=== PATIENT | female | born 1950 | race Caucasian/White ===

== ENCOUNTER 2021-10-14 17:37 | Emergency (ER) | payer MEDICARE, MEDICAID ==
[~2021-10-14] VITALS: Ht 167.6 cm; Wt 68.0 kg
[2021-10-14] MEDS ORDERED: LIDOCAINE HCL 1% 20ML VIAL (Pyxis) INJ INFIL ONE (18:15)
[2021-10-14] MEDS ORDERED: AMLODIPINE 5MG TABLET PO ONE (18:45)
[2021-10-14] MEDS ORDERED: HYDROCHLOROTHIAZIDE 25MG TABLET PO ONE (18:45)
[2021-10-15 04:15] VITALS: BP 191/95
== END 2021-10-15 13:25 ==
LOC: ER 17:37
DX: S01.111A Laceration without foreign body of right eyelid and periocular area, initial encounter (principal); S00.83XA Contusion of other part of head, initial encounter; I69.351 Hemiplegia and hemiparesis following cerebral infarction affecting right dominant side; I69.392 Facial weakness following cerebral infarction; I10 Essential (primary) hypertension; I48.91 Unspecified atrial fibrillation; Z79.01 Long term (current) use of anticoagulants; K02.9 Dental caries, unspecified; F03.90 Unspecified dementia, unspecified severity, without behavioral disturbance, psychotic disturbance, mood disturbance, and anxiety; W05.0XXA Fall from non-moving wheelchair, initial encounter; Y93.89 Activity, other specified; Y92.128 Other place in nursing home as the place of occurrence of the external cause
CPT/HCPCS: 70486; 99285

== ENCOUNTER 2021-12-07 16:18 | Inpatient (IN) | payer MEDICARE, MEDICAID ==
[~2021-12-07] VITALS: Ht 167.6 cm; Wt 52.2 kg
[2021-12-07] MEDS ORDERED: LABETALOL 5MG/ML SYR 20 MG/4 ML SYRINGE IV ONE (16:45)
[2021-12-07 16:57] LABS: BASOPHILS % 0.8 % (0.0-2.0); EOSINOPHILS % 1.3 % (0.0-5.0); HEMATOCRIT. 32.4 % (36.0-48.0); HEMOGLOBIN. 11.2 g/dL (12.0-16.0); MEAN CORPUSCULAR HEMOGLOBIN 30.6 pg (28.0-32.0); MEAN CORPUSCULAR VOLUME 88.5 fL (81.0-99.0); MONOCYTES % 10.3 % (2.0-8.0); NEUTROPHILS % 67.6 % (40.0-76.0); PLATELET 220 x1000/uL (130-400); RED BLOOD CELL COUNT 3.66 mill/uL (4.2-5.4); RED CELL DISTRIBUTION WIDTH 14.5 % (11.6-14.6)
[2021-12-07 17:06] LABS: PROTHROMBIN TIME 11.1 sec (9.6-11.0)
[2021-12-07 17:08] LABS: CHLORIDE 102 mEq/L (98-107)
[2021-12-07] MEDS ORDERED: LORAZEPAM 2MG/ML CPJ IM ONE (17:15)
[2021-12-07] MEDS ORDERED: DIPHENHYDRAMINE 50MG/ML VIAL IM ONE (17:15)
[2021-12-07 17:19] LABS: ETHANOL BLOOD < 10 mg/dL
[2021-12-07] MEDS: HALOPERIDOL LACTATE 5MG/ML VIAL IM ONE ×2 (17:21→17:53)
[2021-12-07 17:33] LABS: CLARITY URINE CLEAR (CLEAR); COLOR URINE YELLOW (YELLOW); KETONES URINE NEGATIVE (NEGATIVE); LEUKOCYTE ESTERASE URINE 1+ (NEGATIVE); NITRITE URINE NEGATIVE (NEGATIVE); OCCULT BLOOD URINE TRACE (NEGATIVE); PH URINE 6.5 (4.5-8.0); PROTEIN URINE 3+ (NEGATIVE); SPECIFIC GRAVITY URINE 1.036 (1.005-1.030); UROBILINOGEN URINE 0.2 E.U./dL (0.2-1.0)
[2021-12-07 17:55] LABS: *AMPHETAMINES SCREEN URINE NEGATIVE (NEGATIVE); *BARBITURATES SCREEN URINE NEGATIVE (NEGATIVE); *BENZODIAZEPINES SCREEN URINE NEGATIVE (NEGATIVE); *COCAINE SCREEN URINE NEGATIVE (NEGATIVE); CANNABINOID URINE SCREEN NEGATIVE (NEGATIVE); METHADONE URINE SCREEN NEGATIVE (NEGATIVE); OPIATES URINE SCREEN NEGATIVE (NEGATIVE); PHENCYCLIDINE URINE SCREEN NEGATIVE (NEGATIVE)
[2021-12-07] MEDS ORDERED: CEFTRIAXONE 1 G PREMIX 50 ML IV ONE (18:30)
[2021-12-07] MEDS ORDERED: SODIUM CHLORIDE 0.9% 1,000 ML IV ONE (18:30)
[2021-12-07] MEDS ORDERED: NITROPRUSSIDE 50 MG in SODIUM CHLORIDE 0.9% 248 ML IV PRN ×4 (19:15)
[2021-12-07 20:30] VITALS: BP 174/85
[2021-12-07 20:45] VITALS: BP 169/86
[2021-12-07 21:00] VITALS: BP_SYST 153; BP_SYST 166; BP_SYST 174; BP_DIAS 73; BP_DIAS 78; BP_DIAS 96
[2021-12-07 21:30] VITALS: BP 136/74
[2021-12-07 22:00] VITALS: BP 125/69
[2021-12-07 23:00] VITALS: BP 156/111
[2021-12-07] MEDS ORDERED: IOHEXOL-350 100 ML BOTTLE ONE (23:09)
[2021-12-08] VITALS (85 sets, daily range): BP systolic 109–213; BP diastolic 62–132
[2021-12-08 06:14] LABS: CHLORIDE 106 mEq/L (98-107)
[2021-12-08 06:22] LABS: BASOPHILS % 0.3 % (0.0-2.0); EOSINOPHILS % 0.5 % (0.0-5.0); HEMATOCRIT. 31.6 % (36.0-48.0); HEMOGLOBIN. 10.8 g/dL (12.0-16.0); LYMPHOCYTES % 13.5 % (20.0-50.0); MEAN CORPUSCULAR HEMOGLOBIN 30.3 pg (28.0-32.0); MEAN PLATELET VOLUME 8.4 fl (7.4-10.4); NEUTROPHILS % 78.7 % (40.0-76.0); PLATELET 223 x1000/uL (130-400); RED BLOOD CELL COUNT 3.55 mill/uL (4.2-5.4); RED CELL DISTRIBUTION WIDTH 14.7 % (11.6-14.6)
[2021-12-08] MEDS: DEXT 5%/0.9% NACL 1,000 ML IV SCH (07:00)
[2021-12-08] MEDS: NITROPRUSSIDE 100 MG in DEXT 5% WATER 246 ML IV PRN ×2 (07:01→23:39)
[2021-12-08] MEDS ORDERED: ASPI-1497 PO (10:49)
[2021-12-08] MEDS ORDERED: ATOR10TA69 PO (10:49)
[2021-12-08] MEDS ORDERED: AMLO5TAB88 MT (10:49)
[2021-12-08] MEDS ORDERED: THIA50TA12 MT (11:00)
[2021-12-08] MEDS ORDERED: HYDR453.3 TP (11:00)
[2021-12-08] MEDS ORDERED: MULT-1146 MT (11:00)
[2021-12-08] MEDS ORDERED: FERR324T11 MT (11:00)
[2021-12-08] MEDS ORDERED: MAGNESIUM/ALUMINUM HYDROXIDE/SIMETHICONE 30ML UDC PO PRN (11:45)
[2021-12-08] MEDS ORDERED: ACETAMINOPHEN 325MG TABLET PO PRN (11:45)
[2021-12-08] MEDS ORDERED: HYDROCODONE/ACETAMINOPHEN 5/325MG TABLET PO PRN (11:45)
[2021-12-08] MEDS ORDERED: ONDANSETRON HCL 4MG/2ML INJ IV PRN (11:45)
[2021-12-08] MEDS ORDERED: NALOXONE HCL 0.4MG/ML VIAL IV PRN (12:00)
[2021-12-08] MEDS: AMLODIPINE 10MG TABLET PO SCH (15:31)
[2021-12-08] MEDS: ENOXAPARIN 40MG/0.4ML SYR SUBCUT SCH (15:31)
[2021-12-08] MEDS: ATORVASTATIN CALCIUM 40MG TABLET PO SCH (21:06)
[2021-12-08] MEDS ORDERED: CEFTRIAXONE 1 G PREMIX 50 ML IV SCH (23:45)
[2021-12-09] VITALS (93 sets, daily range): BP systolic 105–164; BP diastolic 57–94
[2021-12-09] MEDS: DEXT 5%/0.9% NACL 1,000 ML IV SCH (01:58)
[2021-12-09 05:57] LABS: BASOPHILS % 0.5 % (0.0-2.0); EOSINOPHILS % 0.7 % (0.0-5.0); HEMATOCRIT. 31.2 % (36.0-48.0); HEMOGLOBIN. 10.7 g/dL (12.0-16.0); LYMPHOCYTES % 13.5 % (20.0-50.0); MEAN CORPUSCULAR VOLUME 90.4 fL (81.0-99.0); MEAN PLATELET VOLUME 8.7 fl (7.4-10.4); MONOCYTES % 8.7 % (2.0-8.0); NEUTROPHILS % 76.6 % (40.0-76.0); PLATELET 200 x1000/uL (130-400); RED BLOOD CELL COUNT 3.45 mill/uL (4.2-5.4); RED CELL DISTRIBUTION WIDTH 14.8 % (11.6-14.6)
[2021-12-09 06:10] LABS: CHLORIDE 107 mEq/L (98-107)
[2021-12-09 06:30] LABS: HDL CHOLESTEROL 65 mg/dL (40-59); LDL CHOLESTEROL 89 mg/dL (5-100); T4 FREE 0.99 ng/dL (0.76-1.46)
[2021-12-09] MEDS: DEXTROSE 5% WATER 1,000 ML IV SCH (06:53)
[2021-12-09] MEDS: NITROPRUSSIDE 100 MG in DEXT 5% WATER 246 ML IV PRN ×3 (07:02→17:22)
[2021-12-09 07:04] LABS: VITAMIN B12 SERUM 449 pg/mL (211-911)
[2021-12-09] MEDS: HYDRALAZINE 20MG/ML VIAL IV PRN ×2 (07:14→13:43)
[2021-12-09] MEDS: ENOXAPARIN 40MG/0.4ML SYR SUBCUT SCH (08:47)
[2021-12-09] MEDS: AMLODIPINE 10MG TABLET PO SCH (08:47)
[2021-12-09] MEDS: CEFTRIAXONE 1,000 MG in DEXTROSE 5% WATER 50 ML IV SCH (13:42)
[2021-12-09] MEDS: CLONIDINE 0.1MG TABLET PO PRN (13:44)
[2021-12-09] MEDS ORDERED: CEFTAZIDIME PENTAHYDRATE 1 G in DEXTROSE 5% WATER 50 ML IV SCH (18:00)
[2021-12-09] MEDS: ATORVASTATIN CALCIUM 40MG TABLET PO SCH (21:33)
[2021-12-10] VITALS (87 sets, daily range): BP systolic 114–172; BP diastolic 63–101
[2021-12-10] MEDS: NITROPRUSSIDE 100 MG in DEXT 5% WATER 246 ML IV PRN ×3 (04:41→22:51)
[2021-12-10 05:49] LABS: BASOPHILS % 0.4 % (0.0-2.0); EOSINOPHILS % 1.2 % (0.0-5.0); HEMATOCRIT. 30.5 % (36.0-48.0); HEMOGLOBIN. 10.5 g/dL (12.0-16.0); LYMPHOCYTES % 10.1 % (20.0-50.0); MEAN CORPUSCULAR HEMOGLOBIN 30.9 pg (28.0-32.0); MEAN CORPUSCULAR VOLUME 89.9 fL (81.0-99.0); MEAN PLATELET VOLUME 8.5 fl (7.4-10.4); MONOCYTES % 11.5 % (2.0-8.0); NEUTROPHILS % 76.8 % (40.0-76.0); PLATELET 210 x1000/uL (130-400); RED BLOOD CELL COUNT 3.39 mill/uL (4.2-5.4); RED CELL DISTRIBUTION WIDTH 14.4 % (11.6-14.6)
[2021-12-10] MEDS: DEXTROSE 5% WATER 1,000 ML IV SCH (06:07)
[2021-12-10] MEDS: SODIUM CHLORIDE 0.9% 1,000 ML IV SCH (07:55)
[2021-12-10] MEDS ORDERED: HYDRALAZINE HCL 25MG TABLET PO SCH (08:00)
[2021-12-10] MEDS: CEFTRIAXONE 1,000 MG in DEXTROSE 5% WATER 50 ML IV SCH (08:14)
[2021-12-10] MEDS: ENOXAPARIN 40MG/0.4ML SYR SUBCUT SCH (08:16)
[2021-12-10] MEDS: AMLODIPINE 10MG TABLET PO SCH ×2 (08:17→21:15)
[2021-12-10] MEDS ORDERED: CARVEDILOL 6.25 MG TABLET PO NR (11:30)
[2021-12-10] MEDS: HYDRALAZINE HCL 50MG TABLET PO SCH ×2 (14:03→22:43)
[2021-12-10] MEDS: ATORVASTATIN CALCIUM 40MG TABLET PO SCH (21:14)
[2021-12-11] VITALS (75 sets, daily range): BP systolic 102–185; BP diastolic 47–108
[2021-12-11 06:34] LABS: BASOPHILS % 0.4 % (0.0-2.0); EOSINOPHILS % 0.9 % (0.0-5.0); HEMATOCRIT. 28.8 % (36.0-48.0); HEMOGLOBIN. 9.7 g/dL (12.0-16.0); LYMPHOCYTES % 10.9 % (20.0-50.0); MEAN CORPUSCULAR HEMOGLOBIN 30.1 pg (28.0-32.0); MEAN CORPUSCULAR VOLUME 89.2 fL (81.0-99.0); MEAN PLATELET VOLUME 8.4 fl (7.4-10.4); MONOCYTES % 11.7 % (2.0-8.0); NEUTROPHILS % 76.1 % (40.0-76.0); PLATELET 257 x1000/uL (130-400); RED BLOOD CELL COUNT 3.23 mill/uL (4.2-5.4); RED CELL DISTRIBUTION WIDTH 14.8 % (11.6-14.6)
[2021-12-11] MEDS: HYDRALAZINE HCL 50MG TABLET PO SCH ×3 (06:50→21:24)
[2021-12-11] MEDS: SODIUM CHLORIDE 0.9% 1,000 ML IV SCH (06:51)
[2021-12-11] MEDS: NITROPRUSSIDE 100 MG in DEXT 5% WATER 246 ML IV PRN (07:11)
[2021-12-11] MEDS: CEFTRIAXONE 1,000 MG in DEXTROSE 5% WATER 50 ML IV SCH (08:12)
[2021-12-11] MEDS: AMLODIPINE 10MG TABLET PO SCH ×2 (08:12→21:24)
[2021-12-11] MEDS: ENOXAPARIN 40MG/0.4ML SYR SUBCUT SCH (09:15)
[2021-12-11] MEDS: CLONIDINE 0.1MG TABLET PO PRN (10:54)
[2021-12-11] MEDS ORDERED: LACTULOSE 20G/30ML UDC PO NR (19:30)
[2021-12-11] MEDS: ATORVASTATIN CALCIUM 40MG TABLET PO SCH (21:24)
[2021-12-12] VITALS (7 sets, daily range): BP systolic 141–176; BP diastolic 67–93
[2021-12-12] MEDS: SODIUM CHLORIDE 0.9% 1,000 ML IV SCH (04:34)
[2021-12-12] MEDS: HYDRALAZINE HCL 50MG TABLET PO SCH ×3 (06:00→21:18)
[2021-12-12] MEDS: HYDRALAZINE 20MG/ML VIAL IV PRN ×3 (06:27→22:30)
[2021-12-12] MEDS: CARVEDILOL 6.25 MG TABLET PO SCH ×2 (08:33→21:17)
[2021-12-12] MEDS: CEFTRIAXONE 1,000 MG in DEXTROSE 5% WATER 50 ML IV SCH (08:33)
[2021-12-12] MEDS: AMLODIPINE 10MG TABLET PO SCH ×2 (08:33→21:18)
[2021-12-12] MEDS: ENOXAPARIN 40MG/0.4ML SYR SUBCUT SCH (08:33)
[2021-12-12] MEDS ORDERED: LACTULOSE 20G/30ML UDC PO SCH (14:00)
[2021-12-12] MEDS: ATORVASTATIN CALCIUM 40MG TABLET PO SCH (21:18)
[2021-12-13] VITALS: BP 150/81
[2021-12-13 04:00] VITALS: BP 151/88
[2021-12-13] MEDS: HYDRALAZINE HCL 50MG TABLET PO SCH (06:27)
[2021-12-13 08:00] VITALS: BP 170/83
[2021-12-13] MEDS: AMLODIPINE 10MG TABLET PO SCH ×2 (09:34→21:27)
[2021-12-13] MEDS: CARVEDILOL 12.5MG TABLET PO SCH ×2 (09:35→21:26)
[2021-12-13] MEDS: ENOXAPARIN 40MG/0.4ML SYR SUBCUT SCH (09:35)
[2021-12-13] MEDS: CEFTRIAXONE 1,000 MG in DEXTROSE 5% WATER 50 ML IV SCH (09:36)
[2021-12-13 09:56] LABS: HEMATOCRIT. 34.4 % (36.0-48.0); HEMOGLOBIN. 11.6 g/dL (12.0-16.0); MEAN CORPUSCULAR HEMOGLOBIN 30.5 pg (28.0-32.0); MEAN CORPUSCULAR VOLUME 90.5 fL (81.0-99.0); MEAN PLATELET VOLUME 8.1 fl (7.4-10.4); PLATELET 319 x1000/uL (130-400); RED CELL DISTRIBUTION WIDTH 14.6 % (11.6-14.6)
[2021-12-13 10:05] LABS: CHLORIDE 108 mEq/L (98-107)
[2021-12-13 12:00] VITALS: BP 157/86
[2021-12-13] MEDS: HYDRALAZINE HCL 100MG TABLET PO SCH ×2 (15:28→21:26)
[2021-12-13 16:00] VITALS: BP 159/79
[2021-12-13 20:00] VITALS: BP 158/91
[2021-12-13 20:33] LABS: PLATELET ESTIMATE NORMAL
[2021-12-13] MEDS: ATORVASTATIN CALCIUM 40MG TABLET PO SCH (21:26)
[2021-12-14] VITALS: BP 137/67
[2021-12-14 04:00] VITALS: BP 153/88
[2021-12-14] MEDS: HYDRALAZINE HCL 100MG TABLET PO SCH ×2 (06:13→14:45)
[2021-12-14 08:00] VITALS: BP 148/65
[2021-12-14 08:28] VITALS: BP 153/88
[2021-12-14] MEDS: AMLODIPINE 10MG TABLET PO SCH (09:54)
[2021-12-14] MEDS: CARVEDILOL 12.5MG TABLET PO SCH (09:55)
[2021-12-14] MEDS: ENOXAPARIN 40MG/0.4ML SYR SUBCUT SCH (09:56)
[2021-12-14 12:00] VITALS: BP 154/90
[2021-12-14] MEDS: HYDRALAZINE 20MG/ML VIAL IV PRN (14:44)
[2021-12-14 16:00] VITALS: BP 147/75
== END 2021-12-14 17:06 | DRG 280 ==
LOC: ER 16:18 → CVICU 17:41 → EDBEDREQ 17:44 → ENRESERV 18:03 → CANRESERV 18:03 → EDBEDREQTM 19:01 → EDBEDREQSVC 19:01 → ENRESERV 19:06 → CVICU 21:14 → 3WST 12-11 18:43
PROVIDERS: ADMIT Internal Medicine Nephrology; ATTEND Internal Medicine Nephrology
PROC: 4A00X4Z Measurement of Central Nervous Electrical Activity, External Approach (ICD-10-PCS; principal; 2021-12-08)
DX: I11.0 Hypertensive heart disease with heart failure (principal); I21.A1 Myocardial infarction type 2; I50.33 Acute on chronic diastolic (congestive) heart failure; N39.0 Urinary tract infection, site not specified; I16.1 Hypertensive emergency; E72.20 Disorder of urea cycle metabolism, unspecified; Z68.1 Body mass index [BMI] 19.9 or less, adult; G93.40 Encephalopathy, unspecified; E86.0 Dehydration; S50.311A Abrasion of right elbow, initial encounter; R62.7 Adult failure to thrive; I48.91 Unspecified atrial fibrillation; D64.9 Anemia, unspecified; F03.90 Unspecified dementia, unspecified severity, without behavioral disturbance, psychotic disturbance, mood disturbance, and anxiety; R47.81 Slurred speech; R29.810 Facial weakness; Z79.899 Other long term (current) drug therapy; X58.XXXA Exposure to other specified factors, initial encounter; Y93.89 Activity, other specified; Y92.89 Other specified places as the place of occurrence of the external cause; Y99.8 Other external cause status; I69.30 Unspecified sequelae of cerebral infarction
CPT/HCPCS: 36415; 70496; 70498; 70551; 71045; 76770; 80048; 80053; 80061; 80076; 80305; 80320; 81003; 82140; 82607; 83735; 83880; 84100; 84439; 84443; 84484; 85025; 92610; 93005; 93306; 93880; 93970; 95816; 97110; 97162; 97166; 97530; 99291; J0360; J0696; J1200; J1630; J1650; J2060; J3490; J7030; J7042; J7060; J7070; Q9967; G0480